=== PATIENT | male | born 1965 | race Hispanic/Latino ===

== ENCOUNTER → 2018-10-16 | Day surgery (SDC) | payer OTHER ==
[~2018-10-16] MED LIST: CYCLOBENZAPRINE10 MG PO; FENTANYL CITRATE/PF 100MCG/2 ML INJ ONE; GLUCAGON FOR INJ 1 MG VIAL ONE; HYOSCYAMINE SULFATE 0.5 MG/ML INJ ONE; MELOXICAM PO; MIDAZOLAM HCL 2 MG/2 ML VIAL ONE; PROPOFOL IV EMULSION 10 MG/ML 50 ML VIAL ONE
[2018-10-16 13:25] VITALS: BP 134/90
== END | disposition home or self-care (01) ==
LOC: OR 09:45
PROVIDERS: ATTEND Internal Medicine Gastroenterology
DX: Z12.11 Encounter for screening for malignant neoplasm of colon (principal); K63.5 Polyp of colon; K64.8 Other hemorrhoids; K28.9 Gastrojejunal ulcer, unspecified as acute or chronic, without hemorrhage or perforation; E66.3 Overweight; G89.29 Other chronic pain; M54.9 Dorsalgia, unspecified; Z01.810 Encounter for preprocedural cardiovascular examination; Z80.0 Family history of malignant neoplasm of digestive organs
CPT/HCPCS: 45384; 93005; J1610; J1980; J2250; J2704; 45378

== ENCOUNTER 2020-07-26 17:02 | Emergency (ER) | payer SELFPAY ==
[~2020-07-26] VITALS: Ht 177.8 cm; Wt 72.6 kg
[~2020-07-26 17:02] MED LIST changes: -FENTANYL CITRATE/PF 100MCG/2 ML INJ ONE; -GLUCAGON FOR INJ 1 MG VIAL ONE; -HYOSCYAMINE SULFATE 0.5 MG/ML INJ ONE; -MIDAZOLAM HCL 2 MG/2 ML VIAL ONE; -PROPOFOL IV EMULSION 10 MG/ML 50 ML VIAL ONE
[2020-07-26] MEDS ORDERED: HYDROCODONE/APAP 5MG-325MG TAB PO ONE (17:30)
== END 2020-07-26 18:39 | disposition home or self-care (01) ==
LOC: ER 17:08
DX: S13.4XXA Sprain of ligaments of cervical spine, initial encounter (principal); S33.5XXA Sprain of ligaments of lumbar spine, initial encounter; R51.9 Headache, unspecified; V43.52XA Car driver injured in collision with other type car in traffic accident, initial encounter; Y92.488 Other paved roadways as the place of occurrence of the external cause
CPT/HCPCS: 70450; 72100; 72125; 99283

== ENCOUNTER 2021-06-01 09:57 | Emergency (ER) | payer OTHER ==
[~2021-06-01] VITALS: Ht 177.8 cm; Wt 72.6 kg
[2021-06-01] MEDS ORDERED: KETOROLAC TROMETHAMINE 60 MG/2 ML VIAL IM ONE (10:30)
[2021-06-01] MEDS ORDERED: MEDROL4 MG PO (10:31)
[2021-06-01] MEDS ORDERED: IBUPROFEN600 MG PO (10:31)
[2021-06-01] MEDS ORDERED: KETOROLAC TROMETHAMINE 30 MG/ML VIAL ONE (10:45)
== END 2021-06-01 10:42 | disposition home or self-care (01) ==
LOC: ER 10:22
DX: G89.29 Other chronic pain (principal); M54.2 Cervicalgia; M54.6 Pain in thoracic spine; M25.511 Pain in right shoulder
CPT/HCPCS: 99283; J1885

== ENCOUNTER 2025-05-10 16:30 | Emergency (ER) | payer SELFPAY ==
[~2025-05-10] VITALS: Ht 175.3 cm; Wt 78.0 kg
[~2025-05-10 16:30] MED LIST changes: +IBUPROFEN600 MG PO; +MEDROL4 MG PO
[2025-05-10 16:50] VITALS: TEMP 99.1
[2025-05-10 17:29] LABS: BASOPHILS % 0.3 % (0.0-1.0); EOSINOPHILS % 1.4 % (0.0-6.0); LYMPHOCYTES % 21.4 % (18.0-39.1); MONOCYTES % 10.4 % (4.4-11.3); NEUTROPHILS % 66.2 % (38.7-80.0); RED CELL DISTRIBUTION WIDTH 12.8 % (11.7-14.4)
[2025-05-10 17:58] LABS: EST GLOMERULAR FILTRATION RATE 78.0 ML/MIN (>=60)
[2025-05-10] MEDS ORDERED: IOPAMIDOL 370 MG/ML 100 ML INFUS..BTL INJ ONE (18:07)
[2025-05-10] MEDS: Morphine 4mg INJECTION 4 MG/ML INJ IV STA (19:05)
[2025-05-10] MEDS: ONDANSETRON HCL INJ 2MG/ML 2ML 2 MG/ML VIAL IV STA (19:05)
[2025-05-10] MEDS: SODIUM CHLORIDE 0.9% 1000ML 1,000 ML IV STA (19:05)
[2025-05-10 19:12] LABS: LEUKOCYTE ESTERASE ,URINE NEGATIVE (NEGATIVE); PROTEIN,URINE DIPSTICK TRACE (NEGATIVE); URINE UROBILINOGEN 0.2 mg/dL (0.2 - 1)
[2025-05-10] MEDS ORDERED: ULTRAM 50MG50 MG PO (21:14)
[2025-05-10] MEDS ORDERED: FLOMAX0.4 MG PO (21:14)
[2025-05-10 21:24] VITALS: PULSE 76; RESP 17; O2SAT 98
== END 2025-05-10 21:24 | disposition home or self-care (01) ==
LOC: ER 17:37
DX: R33.9 Retention of urine, unspecified (principal); C79.51 Secondary malignant neoplasm of bone; R10.13 Epigastric pain; R53.81 Other malaise; I10 Essential (primary) hypertension; K76.0 Fatty (change of) liver, not elsewhere classified; M54.9 Dorsalgia, unspecified; G89.29 Other chronic pain
CPT/HCPCS: 36415; 51702; 74177; 80053; 81001; 82550; 83690; 84484; 85025; 93005; 99284; J2270; J2405; J7030; Q9967; 51700